=== PATIENT | female | born 1965 | race Caucasian/White ===

== ENCOUNTER → 2017-01-30 | Outpatient (CLI) | payer OTHER ==
[~2017-01-30] MED LIST: ADULT LOW DOSE81 MG PO; AMOXICOT500 MG PO; CITALOPRAM HYDR20 MG PO; HYDROCHLOROTHIA25 M1 PO; MONTELUKAST SOD10 MG PO; NIACIN1000 MG PO; OMEPRAZOLE40 MG PO; OXAZEPAM 15MG C15 M1 PO; POLY VITAMIN W/1 CTB PO; VENTOLIN H0.09 MG/AC IH; ZYRTEC10 M2 PO; [UNRECOGNIZED DRUG - OTHER] PO
== END ==
LOC: SL 13:13
DX: G47.30 Sleep apnea, unspecified (principal); R06.83 Snoring
CPT/HCPCS: G0399-TC

== ENCOUNTER → 2017-03-25 | Outpatient (CLI) | payer OTHER | LOC: SL 20:20 | DX: G47.33 Obstructive sleep apnea (adult) (pediatric) (principal); G47.30 Sleep apnea, unspecified; G47.10 Hypersomnia, unspecified; I10 Essential (primary) hypertension ==